=== PATIENT | female | born 1975 | race Caucasian/White ===

== ENCOUNTER 2019-02-19 22:20 | Emergency (ER) | payer OTHER ==
[~2019-02-19] VITALS: Ht 165.1 cm; Wt 69.0 kg
[2019-02-19] MEDS ORDERED: ACET-683 PO (22:50)
[2019-02-19] MEDS ORDERED: ADDE20CA3 PO (22:50)
[2019-02-19] MEDS ORDERED: ZOLO25TA PO (22:50)
[2019-02-19] MEDS ORDERED: LIDOCAINE 5% (LIDODERM) PATCH TD ONE (23:15)
[2019-02-19] MEDS ORDERED: KETOROLAC 30 MG/ML VIAL (J1885) IM ONE (23:15)
--- NOTE | 2019-02-20 00:35 | REPVR ---
PROCEDURE INFORMATION: Exam: CT Lumbar Spine Without Contrast Exam date and time: 02/19/2019 11:11 PM Clinical history: 43 years old, female; Injury or trauma; Injury history: Lifting; Initial encounter; Rupture of lumbar intervertebral disc; Additional info: Midline ttp S/P lifting, known disc herniation, worsening SX TECHNIQUE: Imaging protocol: Computed tomography images of the lumbar spine without contrast. Radiation optimization: All CT scans at this facility use at least one of these dose optimization techniques: automated exposure control; mA and/or kV adjustment per patient size (includes targeted exams where dose is matched to clinical indication); or iterative reconstruction. COMPARISON: No relevant prior studies available. FINDINGS: Vertebrae: No acute fracture. Normal alignment. Discs/Spinal canal/Neural foramina: Severe degenerative changes L5-S1 with loss of intervertebral disc height and vacuum degeneration. Stenosis of the spinal canal at L4-5 and L5-S1. Soft tissues: Unremarkable. IMPRESSION: No acute fractures or spondylolisthesis. Electronically signed by: Eleuterio Del Valle On 02/20/2019 00:34:35 AM
[2019-02-20] MEDS ORDERED: LIDO5DIS41 TD (00:51)
[2019-02-20 01:09] VITALS: BP 106/59
[2019-02-20] MEDS ORDERED: **NOTE PATIENT COMMENT** MISC XX SCH (21:00)
== END 2019-02-20 01:11 | disposition home or self-care (01) ==
LOC: M ED 22:20
DX: S39.012A Strain of muscle, fascia and tendon of lower back, initial encounter (principal); X50.0XXA Overexertion from strenuous movement or load, initial encounter; Y92.89 Other specified places as the place of occurrence of the external cause; M48.061 Spinal stenosis, lumbar region without neurogenic claudication; G43.909 Migraine, unspecified, not intractable, without status migrainosus; F41.9 Anxiety disorder, unspecified; Z79.899 Other long term (current) drug therapy
CPT/HCPCS: 72131; 96372; 99283; J1885

== ENCOUNTER 2019-04-25 19:57 | Emergency (ER) | payer OTHER ==
[~2019-04-25] VITALS: Ht 165.1 cm; Wt 68.6 kg
[~2019-04-25 19:57] MED LIST: ACET-683 PO; ADDE20CA3 PO; LIDO5DIS41 TD; ZOLO25TA PO
[2019-04-25 19:58] VITALS: BP 143/67
[2019-04-25] MEDS ORDERED: NAPR250T4 PO (20:03)
[2019-04-25] MEDS ORDERED: SUMA100T2 (20:14)
[2019-04-25] MEDS ORDERED: diphenhydrAMINE INJ 50MG/ML VIAL (J1200) IV STA (20:37)
[2019-04-25] MEDS ORDERED: KETOROLAC 30 MG/ML VIAL (J1885) IV ONE (20:45)
[2019-04-25] MEDS ORDERED: METOCLOPRAMIDE INJ 10MG/2ML VIAL (J2765) IV ONE (20:45)
[2019-04-25] MEDS ORDERED: NS 1,000 ML IV ONE (20:45)
== END 2019-04-25 22:02 | disposition home or self-care (01) ==
LOC: M ED 19:57
DX: G43.909 Migraine, unspecified, not intractable, without status migrainosus (principal); Z79.899 Other long term (current) drug therapy
CPT/HCPCS: 96361; 96374; 96375; 99284; J1200; J1885; J2765

== ENCOUNTER 2019-11-02 18:22 | Emergency (ER) | payer OTHER ==
[~2019-11-02] VITALS: Ht 165.1 cm; Wt 68.1 kg
[~2019-11-02 18:22] MED LIST changes: +NAPR250T4 PO; +SUMA100T2
[2019-11-02] MEDS ORDERED: midol (18:30)
[2019-11-02] MEDS ORDERED: eye drops (18:30)
[2019-11-02] MEDS ORDERED: KETOROLAC TROMETHAMINE 10 MG TAB PO ONE (19:45)
[2019-11-02] MEDS ORDERED: METOCLOPRAMIDE 10 MG TAB PO ONE (19:45)
[2019-11-02] MEDS ORDERED: diphenhydrAMINE 25MG CAP PO ONE (19:45)
--- NOTE | 2019-11-02 20:02 | REPVR ---
PROCEDURE INFORMATION: Exam: CT Cervical Spine Without Contrast Exam date and time: 11/02/2019 7:43 PM Age: 44 years old Clinical indication: Injury or trauma; Fall; Initial encounter; Concussion /head injury TECHNIQUE: Imaging protocol: Computed tomography images of the cervical spine without contrast. Radiation optimization: All CT scans at this facility use at least one of these dose optimization techniques: automated exposure control; mA and/or kV adjustment per patient size (includes targeted exams where dose is matched to clinical indication); or iterative reconstruction. COMPARISON: No relevant prior studies available. FINDINGS: Vertebrae: No acute fracture. Normal alignment. C2-C3: No significant disc protrusion. No severe spinal canal stenosis. No significant neural foraminal narrowing. C3-C4: No significant disc protrusion. No severe spinal canal stenosis. No significant neural foraminal narrowing. C4-C5: No significant disc protrusion. No severe spinal canal stenosis. No significant neural foraminal narrowing. C5-C6: No significant disc protrusion. No severe spinal canal stenosis. No significant neural foraminal narrowing. C6-C7: No significant disc protrusion. No severe spinal canal stenosis. No significant neural foraminal narrowing. C7-T1: No significant disc protrusion. No severe spinal canal stenosis. No significant neural foraminal narrowing. Soft tissues: Unremarkable. Lungs: Lung apices are normal. IMPRESSION: No acute findings. Electronically signed by: Bill Pastor On 11/02/2019 20:02:08 PM
--- NOTE | 2019-11-02 20:04 | REPVR ---
PROCEDURE INFORMATION: Exam: CT Head Without Contrast Exam date and time: 11/02/2019 7:43 PM Age: 44 years old Clinical indication: Injury or trauma; Fall; Initial encounter; Blunt trauma (contusions or hematomas); Additional info: Head injury TECHNIQUE: Imaging protocol: Computed tomography of the head without contrast. Radiation optimization: All CT scans at this facility use at least one of these dose optimization techniques: automated exposure control; mA and/or kV adjustment per patient size (includes targeted exams where dose is matched to clinical indication); or iterative reconstruction. COMPARISON: No relevant prior studies available. FINDINGS: Brain: Normal. No hemorrhage. Unremarkable white matter. No mass effect. Ventricles: Normal. No ventriculomegaly. Bones/joints: Unremarkable. No acute fracture. Sinuses: Visualized sinuses are unremarkable. No fluid levels. Mastoid air cells: Visualized mastoid air cells are well aerated. Soft tissues: Unremarkable. IMPRESSION: No acute intracranial abnormality. Electronically signed by: Bill Pastor On 11/02/2019 20:03:50 PM
[2019-11-02 21:01] VITALS: BP 119/69
== END 2019-11-02 21:17 | disposition home or self-care (01) ==
LOC: M ED 18:22
DX: G44.309 Post-traumatic headache, unspecified, not intractable (principal); W01.10XA Fall on same level from slipping, tripping and stumbling with subsequent striking against unspecified object, initial encounter; Y92.095 Swimming-pool of other non-institutional residence as the place of occurrence of the external cause; Y93.9 Activity, unspecified; Y99.9 Unspecified external cause status; Z79.899 Other long term (current) drug therapy